=== PATIENT | male | born 1935 | race Caucasian/White ===

== ENCOUNTER 2020-04-26 22:24 | Emergency (ER) | payer OTHER ==
[~2020-04-26] VITALS: Ht 180.3 cm; Wt 74.8 kg
[2020-04-26 22:55] VITALS: BP_SYST 153
[2020-04-26 23:55] LABS: BASOPHILS # (AUTO) 0.1 K/uL (0.0-0.2); BASOPHILS % (AUTO) 0.9 % (0.0-2.0); EOSINOPHILS # (AUTO) 0.1 K/uL (0.0-0.4); EOSINOPHILS % (AUTO) 0.7 % (0.0-4.0); HEMATOCRIT 45.8 % (36-54); HEMOGLOBIN 15.3 g/dL (14.0-18.0); LYMPHOCYTES # (AUTO) 1.2 K/uL (1.0-5.5); LYMPHOCYTES % (AUTO) 16.8 % (20.5-51.5); MEAN CORPUSCULAR HEMOGLOBIN 31 pg (27-31); MEAN CORPUSCULAR HGB CONC 34 % (32-36); MEAN CORPUSCULAR VOLUME 93 fL (79.0-98.0); MONOCYTES # (AUTO) 0.6 K/uL (0.0-1.0); MONOCYTES % (AUTO) 8.8 % (1.7-9.3); NEUTROPHILS # (AUTO) 5.3 K/uL (1.8-7.7); NEUTROPHILS % (AUTO) 72.8 % (40.0-70.0); PLATELET COUNT (AUTO) 135 K/uL (130-430); RED BLOOD CELL COUNT(AUTO) 4.94 MIL/uL (4.2-6.2); RED CELL DISTRIBUTION WIDTH 14.5 % (9.0-15.0); WHITE BLOOD COUNT (AUTO) 7.3 K/uL (4.8-10.8)
--- NOTE | 2020-04-27 00:08 | NUR ---
Patient to ER bed H1 to gown for evaluation. Side rails up.
[2020-04-27 00:09] LABS: ANION GAP 10 (5-15); CALCIUM 9.3 mg/dL (8.4-11.0); CHLORIDE 105 mmol/L (98-107); GLUCOSE 163 mg/dL (70-99); POTASSIUM 4.2 mmol/L (3.5-5.1); SODIUM SERUM 139 mmol/L (136-145); UREA NITROGEN, BLOOD 38 mg/dL (8-21)
--- NOTE | 2020-04-27 00:10 | NUR ---
ER Dr. Jeffries at bedside examining patient.
[2020-04-27 00:14] LABS: ALANINE AMINOTRANSFERASE 42 U/L (12-78); ALBUMIN 3.8 g/dL (3.4-4.8); ASPARTATE AMINOTRANSFERASE 25 U/L (10-37); TOTAL BILIRUBIN 0.4 mg/dL (0.0-1.0)
[2020-04-27 00:16] LABS: ACETAMINOPHEN < 1 ug/mL (1-30); ALCOHOL, BLOOD < 3 mg/dL (<10)
--- NOTE | 2020-04-27 00:16 | NUR ---
Patient BIB from home. C/O medical clearance x today. Per EMT reported, family called 911 for family disturbance, [place] [employer] placed patient on .
--- NOTE | 2020-04-27 02:16 | NUR ---
Patient walked around and states " want to go home." Dr. Jeffries spoke with patient.
--- NOTE | 2020-04-27 04:21 | NUR ---
Patient resting quietly. No acute distress noted. Vital signs within normal range.
--- NOTE | 2020-04-27 07:15 | NUR ---
PLACEMENT NOTES FAXING FACESHEET AND CLINICALS TO POSSIBLE ACCEPTING BRETT-PSYCH FACILITIES: [facility]
--- NOTE | 2020-04-27 07:18 | NUR ---
Patient sitting upright in bed, patient appears restless and having mild agitation. Patient is consolable. Patient report was not received from warehouse worker 2nd shift nurse. Patient awaiting placement on 5150. heavy line technician is actively trying to find placement.
--- NOTE | 2020-04-27 07:52 | NUR ---
Spoke with Dr. Reyes regarding patient agitation, and elevated blood pressure. Orders received.
[2020-04-27] MEDS ORDERED: LORazepam 1 MG TABLET PO ONE (08:00)
--- NOTE | 2020-04-27 09:15 | NUR ---
Patient sitting upright in bed, eating breakfast, all needs are met at this time. Patient is ambulatory to restroom. Will continue to follow up and monitor.
--- NOTE | 2020-04-27 10:46 | NUR ---
Patient speaking with Dr. Reynoso via Bill. Allyssa appears to have memory issues, and patient is having a difficult time recalling basic information. Patient states it is April 2014, and patient states he is 76 years old. He is able to recall phone number and address, as well as wifes name and age. Patient states no intent to harm self or others, no psychiatic hospitalization history or medication history. Patient denies suicidal and homicidal ideations. It is recommended that patient be hospitalized and the patient has deficits and disturbances.
--- NOTE | 2020-04-27 12:23 | NUR ---
Spoke with Sherlyn at [employer] will fax over required information of facesheet, hold, H&P, and labs. Will follow up regarding placement.
--- NOTE | 2020-04-27 14:44 | NUR ---
Patient resting comfortably in bed. Patient needs are met at this time. Patient is calm and cooperative. Aware we are waiting for placement.
--- NOTE | 2020-04-27 14:46 | NUR ---
Sherlyn, [employer] caseworker, said they would not be able to authorize this weekend.
--- NOTE | 2020-04-27 16:57 | NUR ---
Patient resting comfortably in bed. Patient needs are met at this time. Patient is calm and cooperative. Aware we are waiting for placement.
--- NOTE | 2020-04-27 18:01 | NUR ---
Patient given dinner tray and placed in upright position. Patient is calm and cooperative. Will continue to follow up and monitor.
--- NOTE | 2020-04-27 18:43 | NUR ---
Patient ambulatory to restroom. Patient is calm and cooperative. Will continue to follow up and monitor.
--- NOTE | 2020-04-27 20:00 | NUR ---
S/W Yoko (Representing Sammie) updated on lastest info
--- NOTE | 2020-04-27 21:20 | NUR ---
VSS no s/s of acute distress Resting on pending sale to [facility] up
--- NOTE | 2020-04-27 22:51 | NUR ---
S/W family member, updated on pt overall condition
--- NOTE | 2020-04-28 00:02 | NUR ---
Pt sharing stories and food with staff, being completely cooperative and pleasant
--- NOTE | 2020-04-28 02:30 | NUR ---
Pt remains in stable condition, able to use restroom, well tolerated
--- NOTE | 2020-04-28 04:30 | NUR ---
VSS no s/s of acute distress Resting on gurney rails up
--- NOTE | 2020-04-28 06:18 | NUR ---
S/W pt's Sammie (Ana) updated her on status and upcoming Psych re-eval
--- NOTE | 2020-04-28 07:15 | NUR ---
Patient report received from RICHMOND Starr. Patient appears sleeping, resting comfortably. Called for patient tray.
--- NOTE | 2020-04-28 09:01 | NUR ---
Patient is sitting upright at bedside for breakfast. Patient is calm, and cooperative. Intermittent confusion, asking to go to the mailbox. Patient reassured, no mail has came today. Will continue to follow up and monitor.
--- NOTE | 2020-04-28 11:40 | NUR ---
PATIENT RESTING COMFORTABLY, NEEDS ARE MET AT THIS TIME. WILL CONTINUE TO FOLLOW UP AND MONITOR.
--- NOTE | 2020-04-28 13:42 | NUR ---
PT WALKING CLOSE TO NURSE STATION,RESPIRATIONS EVEN AND UNLABORED
--- NOTE | 2020-04-28 14:18 | NUR ---
PATIENT IS ASKING QUESTIONS REGARDING PROGRESS OF CARE, SAT AT BEDSIDE DISCUSSING STATUS. PATIENT IS COOPERATIVE, AND REMAINING CALM. WILL CONTINUE TO FOLLOW UP AND MONITOR, TECH CONTINUES TOFIND PLACEMENT FOR THE PATIENT. WILL CONTINUE TO FOLLOW UP AND MONITOR.
--- NOTE | 2020-04-28 15:48 | NUR ---
PATIENT NEEDS ARE MET AT THIS TIME. PATIENT UPDATED ON STATUS OF PLACEMENT, PATIENT IS AGREEABLE, BUT IS UPSET REGARDING FAMILY UPSET AND HIS MISSING BELONGINGS. PATIENT IS ABLE TO BE CONSOLED . PATIENT IS COOPERATIVE WITH CARE. WILL CONTINUE TO FOLLOW UP AND MONITOR.
--- NOTE | 2020-04-28 17:47 | NUR ---
CALLED FOR PATIENT DINNER TRAY, GIVEN COFFEE REQUESTED. PATIENT IS CALM AND COOPERATIVE. WILL CONTINUE TO FOLLOW UP AND MONITOR.
--- NOTE | 2020-04-28 18:50 | NUR ---
PATIENT AWARE WE ARE WAITING ON PLACEMENT AND PENDING SHIFT CHANGE. PATIENT VERBALIZED UNDERSTANDING. PATIENT NEEDS ARE MET AT THIS TIME. PATIENT IS CALM .
--- NOTE | 2020-04-28 19:18 | NUR ---
PATIENT REPORT GIVEN TO RICHMOND SAWANT.
--- NOTE | 2020-04-28 19:19 | NUR ---
PT IS RESTING QUIETLY IN HALLWAY, AWAITING PSYCH PLACEMENT. PT IN NO DISTRESS.
[2020-04-28] MEDS ORDERED: HALOPERIDOL LACTATE 5 MG/ML VIAL IM ONE (22:00)
--- NOTE | 2020-04-28 22:00 | NUR ---
PT AGITATED AND PACING UNIT. PT MEDICATED FOR AGITATION-SEE MAR.
--- NOTE | 2020-04-28 22:20 | NUR ---
REPORT TO [facility]ASE WHO WILL ASSUME CARE.
--- NOTE | 2020-04-28 22:30 | NUR ---
PT IS RESTING COMFORTABLY IN BED, NO ACUTE DISTRESS NOTED AT THIS TIME. WILL CONTINUE TO MONITOR
--- NOTE | 2020-04-28 23:30 | NUR ---
Pt is resting in bed, chest rise and fall observed. Vital signs are stable, will continue to monitor.
--- NOTE | 2020-04-29 00:45 | NUR ---
Pt is resting in bed, chest rise and fall observed. Vital signs are stable, will continue to monitor.
--- NOTE | 2020-04-29 01:45 | NUR ---
Pt is awake and resting at this time. No acute distress noted at this time. Will continue to monitor
--- NOTE | 2020-04-29 02:45 | NUR ---
Pt is resting in bed, chest rise and fall observed. Vital signs are stable, will continue to monitor.
--- NOTE | 2020-04-29 04:33 | NUR ---
Pt is resting in bed, chest rise and fall observed. Vital signs are stable, will continue to monitor.
--- NOTE | 2020-04-29 05:30 | NUR ---
Pt is resting in bed, no acute distress noted at this time. Will continue to monitor.
--- NOTE | 2020-04-29 08:11 | NUR ---
Pt asleep in [facility] no distress, resting comfortably
--- NOTE | 2020-04-29 10:51 | NUR ---
Dr Martinez at bedside to assess pt
--- NOTE | 2020-04-29 11:03 | NUR ---
Dr Martinez assessed pt at bedside, plan for pt is to transfer to [facility].
--- NOTE | 2020-04-29 15:02 | NUR ---
report given to Airam dawn [place]. Pt to be sent at 1600
[2020-04-29 16:50] VITALS: BP_SYST 142
--- NOTE | 2020-04-29 16:51 | NUR ---
Patient to be transferred to [facility]. Is being transferred due to higher level of care. Receiving facility has accepting physician and available space. ER physician has signed transfer form. Patient or responsible alliance party has agreed to transfer and signed form. Patient belongings inventoried and will be sent with patient. Copy of nursing notes, lab reports, EKG, Physicians Orders and X-rays to be sent with patient. Report called to CARL at receiving facility. Receiving physician is DR EM. [facility] ambulance service has been called for transfer.
== END 2020-04-29 16:50 ==
LOC: SED 22:24
DX: F03.90 Unspecified dementia, unspecified severity, without behavioral disturbance, psychotic disturbance, mood disturbance, and anxiety (principal)
CPT/HCPCS: 36415; 70450; 80053; 82140; 85025; 87081; 99285; G0480; G0481; G0482; J1630; U0003

== ENCOUNTER 2021-07-03 16:54 | Inpatient (IN) | payer OTHER, SELFPAY ==
[~2021-07-03] VITALS: Ht 180.3 cm; Wt 88.6 kg
[2021-07-03 16:55] VITALS: BP_SYST 132
--- NOTE | 2021-07-03 16:55 | NUR ---
BROUGHT IN BY [place] OLAF FIRE AND PLACED IN BED #7, TRIAGED. REPORT GIVEN TO PELON
--- NOTE | 2021-07-03 17:00 | NUR ---
Pt bib ambulance with complaint of near syncopal event today while walking to his car with his . He was assisted to the ground no trauma noted pt denies loss of concioussness and states he feels fine. Pt was positive for orhtostatics per paramedics. Pt has IV 20Gauge to left forearm. Pt is AAOX3 at baseline and currently. Pt is in no acute distress at this time. VSS attached to monitor with side rails up.
--- NOTE | 2021-07-03 17:05 | NUR ---
SHANDA Kim at bedside examining patient.
[2021-07-03] MEDS ORDERED: NACL 0.9% 1,000 ML IV ONE (17:15)
--- NOTE | 2021-07-03 17:29 | NUR ---
X-ray at bedside.
--- NOTE | 2021-07-03 17:49 | NUR ---
Patient transported to radiology via wheelchair, accompanied by tech.
--- NOTE | 2021-07-03 18:00 | NUR ---
Pt back from CT reattached to monitor. at bedside.
[2021-07-03] MEDS ORDERED: MEMA1CAP3 PO (18:02)
[2021-07-03] MEDS ORDERED: QUET25TA36 PO (18:02)
[2021-07-03] MEDS ORDERED: LIP20 PO (18:02)
[2021-07-03] MEDS ORDERED: ESCI10TA PO (18:02)
--- NOTE | 2021-07-03 18:03 | NUR ---
Medication reconciliation completed with information provided by pt brought home medications. Any prior medication reconciliation on file was reviewed and corrected.
--- NOTE | 2021-07-03 20:05 | NUR ---
# 20 gauge angiocath placed to RFA. Use of asceptic technique. Opsite placed over site. Blood return noted. Blood for lab drawn from site. Flushed with 10 cc of normal saline. No evidence of infiltration noted. Patient tolerated well.
--- NOTE | 2021-07-03 20:05 | NUR ---
Blood collected and sent to lab.
--- NOTE | 2021-07-03 20:14 | NUR ---
Urine collected and sent to lab.
[2021-07-03 20:25] LABS: BASOPHILS % (AUTO) 0.6 % (0.0-2.0); EOSINOPHILS # (AUTO) 0.1 K/uL (0.0-0.4); EOSINOPHILS % (AUTO) 1.4 % (0.0-4.0); HEMATOCRIT 41.6 % (36-54); HEMOGLOBIN 14.2 g/dL (14.0-18.0); LYMPHOCYTES # (AUTO) 2.2 K/uL (1.0-5.5); LYMPHOCYTES % (AUTO) 31.6 % (20.5-51.5); MEAN CORPUSCULAR HEMOGLOBIN 32 pg (27-31); MEAN CORPUSCULAR HGB CONC 34 % (32-36); MEAN CORPUSCULAR VOLUME 93 fL (79.0-98.0); MONOCYTES # (AUTO) 0.7 K/uL (0.0-1.0); MONOCYTES % (AUTO) 9.3 % (1.7-9.3); NEUTROPHILS % (AUTO) 57.1 % (40.0-70.0); PLATELET COUNT (AUTO) 111 K/uL (130-430); RED CELL DISTRIBUTION WIDTH 13.5 % (9.0-15.0)
[2021-07-03 20:31] LABS: ANION GAP 10 (5-15); CALCIUM 8.6 mg/dL (8.4-11.0); CHLORIDE 108 mmol/L (98-107); CREATININE 2.17 mg/dL (0.55-1.30); GLUCOSE 84 mg/dL (70-99); POTASSIUM 3.9 mmol/L (3.5-5.1); SODIUM SERUM 141 mmol/L (136-145); UREA NITROGEN, BLOOD 33 mg/dL (8-21)
[2021-07-03 20:33] LABS: BILIRUBIN,URINE NEGATIVE (NEGATIVE); BLOOD, URINE NEGATIVE (NEGATIVE); CLARITY/URINE CLEAR (CLEAR); COLOR,URINE YELLOW (YELLOW); GLUCOSE,URINE NEGATIVE (NEGATIVE); KETONES,URINE NEGATIVE (NEGATIVE); LEUKOCYTE ESTERASE ,URINE NEGATIVE (NEGATIVE); NITRITE, URINE NEGATIVE (NEGATIVE); PH,URINE 5.5 (5.0-8.0); PROTEIN URINE NEGATIVE (NEGATIVE); UROBILINOGEN,URINE 0.2 (0.2-1.0)
[2021-07-03 20:37] LABS: ALANINE AMINOTRANSFERASE 49 U/L (12-78); ALBUMIN 3.3 g/dL (3.4-4.8); ASPARTATE AMINOTRANSFERASE 23 U/L (10-37); TOTAL BILIRUBIN 0.4 mg/dL (0.0-1.0)
[2021-07-03 20:38] LABS: ALCOHOL, BLOOD < 3 mg/dL (<10)
[2021-07-03 20:48] LABS: PROTHROMBIN TIME 10.7 SECS (9.5-12.5)
--- NOTE | 2021-07-03 20:54 | NUR ---
Covid swab collected and sent to lab.
[2021-07-03 21:09] LABS: BARBITURATE, URINE NEGATIVE (NEG <=200); BENZODIAZEPINE, URINE NEGATIVE (NEG <=150); CANNABINOID, URINE NEGATIVE (NEG <=50); COCAINE, URINE NEGATIVE (NEG <=150); METHAMPHETAMINES SCREEN,URINE NEGATIVE (NEG <=500); OPIATE, URINE NEGATIVE (NEG <=100); PHENCYCLIDINE SCREEN,URINE NEGATIVE (NEG <=25); UR TRICYCLIC ANTIDEPRESSANTS POSITIVE (NEG <=300); URINE AMPHETAMINE NEGATIVE (NEG <=500); URINE METHADONE NEGATIVE (NEG <=200); URINE OXYCODONE SCREEN NEGATIVE (NEG <=100); URINE PROPOXYPHENE SCREEN NEGATIVE (NEG <=300)
--- NOTE | 2021-07-03 21:27 | NUR ---
Dr. Wiggins at bedside speaking with pt.
--- NOTE | 2021-07-03 21:40 | NUR ---
Admit orders recieved.
--- NOTE | 2021-07-03 21:42 | NUR ---
Called for a bed and spoke with charge nurse. Awaiting bed placement.
[2021-07-03] MEDS ORDERED: ACETAMINOPHEN 325 MG TABLET PO PRN (22:00)
[2021-07-03] MEDS ORDERED: DOCUSATE SODIUM 100 MG CAPSULE PO PRN (22:00)
[2021-07-03] MEDS ORDERED: ONDANSETRON HCL 4 MG/2 ML VIAL IVP PRN (22:00)
[2021-07-03] MEDS ORDERED: MORPHINE 2 MG/ML INJ. SYRINGE IVP PRN ×2 (22:00)
[2021-07-03] MEDS ORDERED: MUPIROCIN 2% TOPICAL OINTMENT 22 GM NS PRN (22:00)
[2021-07-03] MEDS ORDERED: POTASSIUM CHLORIDE 20 MEQ TAB.PRT.SR PO PRN (22:00)
[2021-07-03] MEDS ORDERED: MAGNESIUM SULFATE 50 ML IV PRN (22:00)
--- NOTE | 2021-07-03 22:41 | NUR ---
Patient will be admitted to care of . Admitted to Telemetry unit. Will go to room 102A. Belongings list completed. Complete and up to date summary report printed. SBAR report to be given at bedside with opportunity for questions.
--- NOTE | 2021-07-03 22:42 | NUR ---
POLST updated to full code.
--- NOTE | 2021-07-03 22:45 | NUR ---
Transfered to telemetery 102A on [facility] attached to portable monitor accompanied by staff.
--- NOTE | 2021-07-03 23:04 | NUR ---
ADMIT NOTE Received pt from ER with a diagnosis of syncope. Admission process initiated. patient oriented to pain management, safety and call light-teach back done.
--- NOTE | 2021-07-03 23:45 | NUR ---
pulled out IV Very forgetful; pulled out IV
[2021-07-03] MEDS: NACL 0.9% 1,000 ML IV SCH (23:50)
[2021-07-04] VITALS (7 sets, daily range): BP systolic 11–167
--- NOTE | 2021-07-04 00:55 | NUR ---
Dr. Cohen Informed Dr. Cohen patient's latest B/P 167/96, HR 67. Received medication orders; TORB; Amlodipine 10mg daily, one now and Clonidine 0.2mg PO once now.
[2021-07-04] MEDS ORDERED: cloNIDine HCL 0.2 MG TABLET PO ONE (01:00)
[2021-07-04] MEDS ORDERED: amLODIPine BESYLATE 10 MG TABLET PO ONE (01:00)
--- NOTE | 2021-07-04 01:20 | NUR ---
Pulled out IV, removed leads confused, forgetful, not cooperating.
--- NOTE | 2021-07-04 02:15 | NUR ---
New room, IV start patient was transferred to room 113B, close to nursing station. New IV was started on LFA #20G, blood return noted, tolerated, Resumed IVF, infusing well.
[2021-07-04] MEDS: LORazepam 2 MG/ML VIAL IVP PRN (03:33)
--- NOTE | 2021-07-04 03:33 | NUR ---
Ativan Forgetful; keeps asking when will he go home? why is he here? why does he need telemonitor? keeps removing telemetry leads, and attempts to remove dressing securing IV. I (nurse) need to chart by the door to keep an eye on him. He is awake, restless and removing items. Administered Ativan as ordered, wctm
--- NOTE | 2021-07-04 05:29 | NUR ---
CONSULT REASON FOR CONSULT: SYNCOPE CONSULTING PHYSICIAN: DR. WU INFORMATION TECHNOLOGY COORDINATOR PHONE NUMBER: [phone] ORDERING PHYSICIAN: DR. GANN
--- NOTE | 2021-07-04 05:30 | NUR ---
CONSULT REASON FOR CONSULT: RENAL INSUFF PERSON I SPOKE WITH: JOAO CONSULTING PHYSICIAN: DR. WIGGINS WELDING INSTRUCTOR PHONE NUMBER: [phone] ORDERING PHYSICIAN: DR. GANN
[2021-07-04 07:34] LABS: BASOPHILS % (AUTO) 0.6 % (0.0-2.0); EOSINOPHILS # (AUTO) 0.1 K/uL (0.0-0.4); EOSINOPHILS % (AUTO) 2.2 % (0.0-4.0); HEMATOCRIT 36.4 % (36-54); HEMOGLOBIN 12.8 g/dL (14.0-18.0); LYMPHOCYTES # (AUTO) 1.7 K/uL (1.0-5.5); LYMPHOCYTES % (AUTO) 27.5 % (20.5-51.5); MEAN CORPUSCULAR HEMOGLOBIN 32 pg (27-31); MEAN CORPUSCULAR HGB CONC 35 % (32-36); MEAN CORPUSCULAR VOLUME 91 fL (79.0-98.0); MONOCYTES # (AUTO) 0.6 K/uL (0.0-1.0); MONOCYTES % (AUTO) 8.9 % (1.7-9.3); NEUTROPHILS # (AUTO) 3.8 K/uL (1.8-7.7); NEUTROPHILS % (AUTO) 60.8 % (40.0-70.0); PLATELET COUNT (AUTO) 96 K/uL (130-430); RED BLOOD CELL COUNT(AUTO) 3.99 MIL/uL (4.2-6.2); RED CELL DISTRIBUTION WIDTH 13.4 % (9.0-15.0); WHITE BLOOD COUNT (AUTO) 6.3 K/uL (4.8-10.8)
[2021-07-04 08:11] LABS: ANION GAP 8 (5-15); CALCIUM 8.5 mg/dL (8.4-11.0); CHLORIDE 108 mmol/L (98-107); CREATININE 1.98 mg/dL (0.55-1.30); GLUCOSE 122 mg/dL (70-99); POTASSIUM 3.9 mmol/L (3.5-5.1); SODIUM SERUM 138 mmol/L (136-145); UREA NITROGEN, BLOOD 30 mg/dL (8-21)
--- NOTE | 2021-07-04 08:20 | NUR ---
Opening note Patient is resting in bed A&O x3, able to reorient, is forgetful. No complaint of pain or discomfort, no signs or symptoms of respiratory distress, IV is infusing no signs or symptoms of infiltration. Educated patient on plan of care, patient verbalized understanding will reenforce education. Bed is in lowest position, call light within reach, fall and aspiration precautions are in place. Will continue to monitor.
[2021-07-04] MEDS ORDERED: [UNRECOGNIZED DRUG - OTHER] PO SCH (09:00)
[2021-07-04] MEDS ORDERED: MEMANTINE HCL PO SCH (09:00)
[2021-07-04] MEDS ORDERED: ESCITALOPRAM OXALATE 10 MG TABLET PO SCH (09:00)
[2021-07-04] MEDS ORDERED: DONEPEZIL HCL PO SCH (09:00)
--- NOTE | 2021-07-04 09:28 | NUR ---
CONSULTATION PAGED REASON FOR CONSULTATION:SYNCOPE WAS CONSULT CALED?Y PERSON WHO WAS NOTIFIED:ADAMA CONSULTING PHYSICIAN:JAVI QUINONEZ BAKER CHEF SPECIALTY:CARDIO BAKER CHEF PHONE NUMBER:[phone] RE[facility]ING PH[facility]IC[facility]
--- NOTE | 2021-07-04 09:38 | NUR ---
CONSULTATION PAGED REASON FOR CONSULTATION:SYNCOPE WAS CONSULT CALED?Y PERSON WHO WAS NOTIFIED: CONSULTING PHYSICIAN:ROZINA SCOTT MD OPHTHALMOLOGIST SPECIALTY:CARDIO MD OPHTHALMOLOGIST PHONE [phone]: REQUESTING PHYSICIAN:DR.SINGHGABE
[2021-07-04] MEDS: CITALOPRAM HYDROBROMIDE 20 MG TABLET PO SCH (09:44)
[2021-07-04] MEDS: amLODIPine BESYLATE 10 MG TABLET PO SCH (09:44)
[2021-07-04] MEDS: ATORVASTATIN 20 MG TABLET PO SCH (09:44)
[2021-07-04] MEDS: HEPARIN SODIUM,PORCINE 5,000 UNITS/ML VIAL SUBCUT SCH ×2 (09:47→20:06)
--- NOTE | 2021-07-04 10:01 | NUR ---
CONSULTATION CANCELED INFORMED ELVIS QUINONEZ THAT THE CONSULT WAS CANCELED WITH HIM.
[2021-07-04] MEDS: NACL 0.9% 1,000 ML IV SCH ×2 (12:18→17:25)
--- NOTE | 2021-07-04 12:30 | NUR ---
Rn note Patient is stable resting in bed. is at bedside. No complaint of pain or discomfort. Will continue to monitor.
--- NOTE | 2021-07-04 18:38 | NUR ---
Closing note Patient is resting in bed A&O x3, able to reorient, is forgetful. No complaint of pain or discomfort, no signs or symptoms of respiratory distress, IV is infusing no signs or symptoms of infiltration. all needs were met. Bed is in lowest position, call light within reach, fall and aspiration precautions are in place. Will endorse report to night cleaner.
--- NOTE | 2021-07-04 19:30 | NUR ---
INITIAL NOTE AT INITIAL ASSESSMENT, PATIENT IS RESTING IN BED, STABLE, NO SIGNS OF RESPIRATORY DISTRESS. PATIENT VERBALIZES NO PAIN, AND NO DIZZINESS. PLAN OF CARE FOR THE EVENING IS COMMUNICATED WITH THE PATIENT, HE IS STILL CONFUSED. PATIENT IS UNABLE TO DEMONSTRATE CORRECT USAGE OF CALL LIGHT AT THIS TIME DUE TO COGNITIVE IMPAIRMENT; FREQUENT ROUNDING WILL BE COMPLETED THROUGHOUT THE NIGHT TO MEET ALL PATIENT NEEDS. BED IS LOCKED, ALARMED, AND AT THE LOWEST LEVEL. FALL SAFETY EDUCATION PROVIDED. FALL, AND SAFETY PRECAUTIONS WILL BE TAKEN THROUGHOUT THE SHIFT.
--- NOTE | 2021-07-04 20:45 | NUR ---
MED PASS NOTE SCHEDULED MEDICATIONS GIVEN AT THIS TIME, PATIENT TOLERATED WELL. CALL LIGHT IS PLACED WITHIN REACH. BED IS LOCKED, ALARMED, AND AT THE LOWEST LEVEL.
[2021-07-05 00:34] VITALS: BP_SYST 109
[2021-07-05] MEDS: LORazepam 2 MG/ML VIAL IVP PRN (01:01)
--- NOTE | 2021-07-05 01:10 | NUR ---
ANXIETY NOTE PATIENT ANXIOUS AND RESTLESS, REORIENTATION EFFORTS NO EFFECTIVE THIS TIME. PRN MEDICATION WILL BE GIVEN AT THIS TIME FOR PATIENT'S ANXIETY. WILL REASSESS IF PRN MEDICATION GIVEN WAS EFFECTIVE. CALL LIGHT PLACED WITHIN REACH. BED IS LOCKED, ALARMED, AND AT THE LOWEST LEVEL.
[2021-07-05 06:48] LABS: BASOPHILS # (AUTO) 0.1 K/uL (0.0-0.2); BASOPHILS % (AUTO) 0.9 % (0.0-2.0); EOSINOPHILS # (AUTO) 0.2 K/uL (0.0-0.4); EOSINOPHILS % (AUTO) 4.4 % (0.0-4.0); HEMATOCRIT 36.2 % (36-54); HEMOGLOBIN 12.5 g/dL (14.0-18.0); LYMPHOCYTES # (AUTO) 1.5 K/uL (1.0-5.5); LYMPHOCYTES % (AUTO) 27.4 % (20.5-51.5); MEAN CORPUSCULAR HEMOGLOBIN 31 pg (27-31); MEAN CORPUSCULAR HGB CONC 35 % (32-36); MEAN CORPUSCULAR VOLUME 91 fL (79.0-98.0); MONOCYTES # (AUTO) 0.5 K/uL (0.0-1.0); MONOCYTES % (AUTO) 8.4 % (1.7-9.3); NEUTROPHILS # (AUTO) 3.3 K/uL (1.8-7.7); NEUTROPHILS % (AUTO) 58.9 % (40.0-70.0); PLATELET COUNT (AUTO) 94 K/uL (130-430); RED BLOOD CELL COUNT(AUTO) 3.97 MIL/uL (4.2-6.2); RED CELL DISTRIBUTION WIDTH 13.4 % (9.0-15.0); WHITE BLOOD COUNT (AUTO) 5.5 K/uL (4.8-10.8)
--- NOTE | 2021-07-05 06:48 | NUR ---
CLOSING NOTE PATIENT WAS CONFUSED/ FORGETFUL THROUGHOUT THE SHIFT, REORIENTATION EFFORTS WERE ONLY EFFECTIVE FOR A FEW MINUTES BEFORE PATIENT FORGOT AGAIN. HE STATED HE DID NOT FEEL ANY DIZZINESS DURING THE SHIFT. NO SHORTNESS OF BREATH NOTED. AT THIS TIME, PATIENT IS RESTING IN BED, STABLE, NO SIGNS OF RESPIRATORY DISTRESS. CALL LIGHT IS WITHIN REACH. BED IS LOCKED, ALARMED, AND AT THE LOWEST LEVEL. FALL, SAFETY, AND RESPIRATORY PRECAUTIONS HAVE BEEN TAKEN THROUGHOUT THE SHIFT. WILL CONTINUE TO MONITOR UNTIL SHIFT REPORT IS GIVEN AT BEDSIDE TO AM NURSE.
--- NOTE | 2021-07-05 07:10 | NUR ---
To VANDANA BENDER Addendum: 07/05/21 at 0716 by Aster Chou RN Wrong charting not intended for this patient
[2021-07-05 07:13] VITALS: BP_SYST 126
--- NOTE | 2021-07-05 07:15 | NUR ---
Patient awake/alert oriented to himself , slow response to question and forgetful, safety /fall precaution initiated
[2021-07-05 07:16] LABS: ANION GAP 7 (5-15); CALCIUM 8.3 mg/dL (8.4-11.0); CHLORIDE 108 mmol/L (98-107); CREATININE 1.78 mg/dL (0.55-1.30); GLUCOSE 110 mg/dL (70-99); POTASSIUM 3.9 mmol/L (3.5-5.1); SODIUM SERUM 138 mmol/L (136-145); UREA NITROGEN, BLOOD 29 mg/dL (8-21)
[2021-07-05] MEDS: CITALOPRAM HYDROBROMIDE 20 MG TABLET PO SCH (08:03)
[2021-07-05] MEDS: amLODIPine BESYLATE 10 MG TABLET PO SCH (08:04)
[2021-07-05] MEDS: ATORVASTATIN 20 MG TABLET PO SCH (08:04)
--- NOTE | 2021-07-05 08:45 | NUR ---
Able to ambulate up to door steady gait , fall risk no dizziness
[2021-07-05] MEDS: HEPARIN SODIUM,PORCINE 5,000 UNITS/ML VIAL SUBCUT SCH (09:29)
--- NOTE | 2021-07-05 09:30 | NUR ---
Clarified with Dr. Collins regarding heparin and platelets counts and said its OK to give.
[2021-07-05] MEDS ORDERED: MEMANTINE HCL 5 MG TABLET PO ONE (09:45)
--- NOTE | 2021-07-05 10:00 | NUR ---
Patient ambulate to bathroom with steady gait no dizziness.
--- NOTE | 2021-07-05 10:23 | NUR ---
Nutrition Update Andrey Scale 18 noted. Pt admitted for syncope. Diet: regular BMI: 27.2 kg/m2 RD to follow per nutrition care standards.
[2021-07-05] MEDS ORDERED: FAMOTIDINE 20 MG TABLET PO ONE (10:30)
[2021-07-05 11:28] VITALS: BP_SYST 148
--- NOTE | 2021-07-05 12:05 | NUR ---
Patient refusing to have IV fluids , as the bedside , patient saying i am drinking water.
[2021-07-05] MEDS ORDERED: QUEtiapine FUMARATE 25 MG TABLET PO ONE (12:15)
--- NOTE | 2021-07-05 12:32 | NUR ---
MADE A FOLLOW UP CALL TO THE NEURO CONSULT Earline LOMELI INHALATION THERAPIST FOR DR Franko WU, RE: SYNCOPE. LEFT A VOICE MESSAGE ON HIS CELL PHONE
--- NOTE | 2021-07-05 13:34 | NUR ---
Seen and examined by Dr. Zamudio , spoke to with clearance for discharge .
--- NOTE | 2021-07-05 13:45 | NUR ---
D/C Patient Patient given medication reconciliation form and D/C instructions. Exit Care provided. Patient verbalized understanding. MD discussed with patient the results and treatment provided. Ambulatory with steady gait for discharge to home. Patient in stable condition, ID band removed. IV catheter removed, intact and dressing applied, no active bleeding Patient educated on safety /fall management. All belongings sent with patient.
[2021-07-05 14:22] VITALS: BP_SYST 137
[2021-07-05 15:35] VITALS: BP_SYST 137
[2021-07-05] MEDS ORDERED: QUET25TA36 PO (16:57)
[2021-07-05] MEDS ORDERED: MEMANTINE HCL 5 MG TABLET PO SCH (21:00)
[2021-07-05] MEDS ORDERED: DONEPEZIL HCL 5 MG TABLET (ARICEPT) PO SCH (21:00)
[2021-07-06] MEDS ORDERED: FAMOTIDINE 20 MG TABLET PO SCH (09:00)
[2021-07-06] MEDS ORDERED: QUEtiapine FUMARATE 25 MG TABLET PO SCH (09:00)
== END 2021-07-05 15:10 | disposition home or self-care (01) | DRG 73 ==
LOC: SED 16:54 → STU 21:38
PROVIDERS: ADMIT General Practice; ATTEND General Practice
DX: G90.8 Other disorders of autonomic nervous system (principal); N17.0 Acute kidney failure with tubular necrosis; F29 Unspecified psychosis not due to a substance or known physiological condition; G30.9 Alzheimer's disease, unspecified; I10 Essential (primary) hypertension; F02.80 Dementia in other diseases classified elsewhere, unspecified severity, without behavioral disturbance, psychotic disturbance, mood disturbance, and anxiety; F32.9 Major depressive disorder, single episode, unspecified; I65.29 Occlusion and stenosis of unspecified carotid artery; N28.1 Cyst of kidney, acquired; Z20.822 Contact with and (suspected) exposure to COVID-19; Z66 Do not resuscitate; Z87.891 Personal history of nicotine dependence
CPT/HCPCS: 36415; 70450-TC; 71045; 76376; 76770; 80048; 80053; 80307; 81003; 83036; 83605; 83735; 84443; 84484; 85025; 85610-TC; 85730-TC; 87040-TC; 93005; 93306; 93880; 96360; 97530-GP; 99285; G0378; G0482; J1644; J2060; J2270

== ENCOUNTER 2021-07-05 20:40 | Inpatient (IN) | payer OTHER, SELFPAY ==
[~2021-07-05] VITALS: Ht 180.3 cm; Wt 88.5 kg
[~2021-07-05 20:40] MED LIST: ESCI10TA PO; LIP20 PO; MEMA1CAP3 PO; QUET25TA36 PO
[2021-07-05 20:44] VITALS: BP_SYST 98
[2021-07-05 21:15] LABS: BASOPHILS % (AUTO) 0.4 % (0.0-2.0); EOSINOPHILS # (AUTO) 0.1 K/uL (0.0-0.4); EOSINOPHILS % (AUTO) 0.8 % (0.0-4.0); HEMATOCRIT 38.1 % (36-54); HEMOGLOBIN 13.2 g/dL (14.0-18.0); LYMPHOCYTES # (AUTO) 0.6 K/uL (1.0-5.5); LYMPHOCYTES % (AUTO) 7.6 % (20.5-51.5); MEAN CORPUSCULAR HEMOGLOBIN 32 pg (27-31); MEAN CORPUSCULAR HGB CONC 35 % (32-36); MEAN CORPUSCULAR VOLUME 92 fL (79.0-98.0); MONOCYTES # (AUTO) 0.5 K/uL (0.0-1.0); MONOCYTES % (AUTO) 6.9 % (1.7-9.3); NEUTROPHILS # (AUTO) 6.3 K/uL (1.8-7.7); NEUTROPHILS % (AUTO) 84.3 % (40.0-70.0); PLATELET COUNT (AUTO) 97 K/uL (130-430); RED BLOOD CELL COUNT(AUTO) 4.16 MIL/uL (4.2-6.2); RED CELL DISTRIBUTION WIDTH 13.8 % (9.0-15.0); WHITE BLOOD COUNT (AUTO) 7.4 K/uL (4.8-10.8)
[2021-07-05 21:31] LABS: ANION GAP 10 (5-15); CALCIUM 8.7 mg/dL (8.4-11.0); CHLORIDE 108 mmol/L (98-107); CREATININE 2.32 mg/dL (0.55-1.30); GLUCOSE 141 mg/dL (70-99); POTASSIUM 4.1 mmol/L (3.5-5.1); SODIUM SERUM 139 mmol/L (136-145); UREA NITROGEN, BLOOD 29 mg/dL (8-21)
[2021-07-05 21:37] LABS: ALANINE AMINOTRANSFERASE 35 U/L (12-78); ALBUMIN 3.2 g/dL (3.4-4.8); ASPARTATE AMINOTRANSFERASE 22 U/L (10-37); TOTAL BILIRUBIN 0.5 mg/dL (0.0-1.0)
[2021-07-05] MEDS ORDERED: ONDANSETRON HCL 4 MG/2 ML VIAL IVP PRN (23:00)
[2021-07-05] MEDS ORDERED: QUEtiapine FUMARATE 25 MG TABLET PO ONE (23:00)
[2021-07-05] MEDS ORDERED: QUEtiapine FUMARATE 25 MG TABLET ONE (23:24)
[2021-07-05] MEDS: NACL 0.9% 1,000 ML IV SCH (23:54)
[2021-07-06] MEDS ORDERED: HALOPERIDOL LACTATE 5 MG/ML VIAL IM ONE
[2021-07-06] MEDS ORDERED: HALOPERIDOL 5 MG TABLET (HALDOL) PO ONE (01:15)
[2021-07-06] MEDS ORDERED: DIPHENHYDRAMINE INJ 50 MG/ML VIAL IVP ONE ×2 (01:15)
[2021-07-06 01:32] LABS: ANION GAP 11 (5-15); CALCIUM 8.6 mg/dL (8.4-11.0); CHLORIDE 107 mmol/L (98-107); CREATININE 2.33 mg/dL (0.55-1.30); GLUCOSE 131 mg/dL (70-99); POTASSIUM 3.7 mmol/L (3.5-5.1); SODIUM SERUM 141 mmol/L (136-145); UREA NITROGEN, BLOOD 28 mg/dL (8-21)
[2021-07-06 02:40] LABS: BILIRUBIN,URINE NEGATIVE (NEGATIVE); BLOOD, URINE NEGATIVE (NEGATIVE); CLARITY/URINE CLEAR (CLEAR); COLOR,URINE YELLOW (YELLOW); GLUCOSE,URINE NEGATIVE (NEGATIVE); KETONES,URINE NEGATIVE (NEGATIVE); LEUKOCYTE ESTERASE ,URINE NEGATIVE (NEGATIVE); NITRITE, URINE NEGATIVE (NEGATIVE); PROTEIN URINE NEGATIVE (NEGATIVE); UROBILINOGEN,URINE 0.2 (0.2-1.0)
[2021-07-06] MEDS ORDERED: HALOPERIDOL 5 MG TABLET (HALDOL) PO SCH (02:45)
[2021-07-06] MEDS ORDERED: KETAMINE 30 MG/3 ML SYRINGE IM ONE (08:00)
[2021-07-06] MEDS ORDERED: MEMANTINE HCL 7 MG CAP.SPR.24 PO SCH (09:00)
[2021-07-06] MEDS ORDERED: ESCITALOPRAM OXALATE 10 MG TABLET PO SCH (09:00)
[2021-07-06 09:14] LABS: BASOPHILS % (AUTO) 0.7 % (0.0-2.0); EOSINOPHILS # (AUTO) 0.2 K/uL (0.0-0.4); EOSINOPHILS % (AUTO) 2.7 % (0.0-4.0); HEMATOCRIT 37.4 % (36-54); HEMOGLOBIN 12.8 g/dL (14.0-18.0); LYMPHOCYTES # (AUTO) 1.1 K/uL (1.0-5.5); LYMPHOCYTES % (AUTO) 17.5 % (20.5-51.5); MEAN CORPUSCULAR HEMOGLOBIN 32 pg (27-31); MEAN CORPUSCULAR HGB CONC 34 % (32-36); MEAN CORPUSCULAR VOLUME 92 fL (79.0-98.0); MONOCYTES # (AUTO) 0.7 K/uL (0.0-1.0); NEUTROPHILS # (AUTO) 4.3 K/uL (1.8-7.7); NEUTROPHILS % (AUTO) 68.1 % (40.0-70.0); PLATELET COUNT (AUTO) 98 K/uL (130-430); RED BLOOD CELL COUNT(AUTO) 4.06 MIL/uL (4.2-6.2); RED CELL DISTRIBUTION WIDTH 13.7 % (9.0-15.0); WHITE BLOOD COUNT (AUTO) 6.3 K/uL (4.8-10.8)
[2021-07-06] MEDS: MEMANTINE HCL 5 MG TABLET PO SCH ×2 (09:44→21:09)
[2021-07-06] MEDS: ENOXAPARIN SODIUM 30 MG/0.3 ML SYRINGE SUBCUT SCH (09:45)
[2021-07-06] MEDS ORDERED: KETAMINE 30 MG/3 ML SYRINGE IVP ONE (10:00)
[2021-07-06] MEDS ORDERED: KETAMINE 30 MG/3 ML SYRINGE ONE (10:08)
[2021-07-06] MEDS: CITALOPRAM HYDROBROMIDE 20 MG TABLET PO SCH (10:08)
[2021-07-06] MEDS: ATORVASTATIN 20 MG TABLET PO SCH (10:08)
[2021-07-06] MEDS: QUEtiapine FUMARATE 25 MG TABLET PO SCH (10:09)
[2021-07-06 12:00] VITALS: BP_SYST 156
[2021-07-06 15:29] VITALS: BP_SYST 172
[2021-07-06] MEDS: NACL 0.9% 1,000 ML IV SCH (16:24)
[2021-07-06] MEDS: DONEPEZIL HCL 5 MG TABLET (ARICEPT) PO SCH (21:09)
[2021-07-06 21:14] VITALS: BP_SYST 177
[2021-07-07 00:27] VITALS: BP_SYST 153
[2021-07-07 07:09] LABS: BASOPHILS % (AUTO) 0.8 % (0.0-2.0); EOSINOPHILS # (AUTO) 0.3 K/uL (0.0-0.4); EOSINOPHILS % (AUTO) 4.3 % (0.0-4.0); HEMATOCRIT 39.6 % (36-54); HEMOGLOBIN 13.7 g/dL (14.0-18.0); LYMPHOCYTES # (AUTO) 1.2 K/uL (1.0-5.5); LYMPHOCYTES % (AUTO) 20.9 % (20.5-51.5); MEAN CORPUSCULAR HEMOGLOBIN 32 pg (27-31); MEAN CORPUSCULAR HGB CONC 35 % (32-36); MEAN CORPUSCULAR VOLUME 92 fL (79.0-98.0); MONOCYTES # (AUTO) 0.6 K/uL (0.0-1.0); MONOCYTES % (AUTO) 9.9 % (1.7-9.3); NEUTROPHILS # (AUTO) 3.8 K/uL (1.8-7.7); NEUTROPHILS % (AUTO) 64.1 % (40.0-70.0); PLATELET COUNT (AUTO) 103 K/uL (130-430); RED BLOOD CELL COUNT(AUTO) 4.33 MIL/uL (4.2-6.2); RED CELL DISTRIBUTION WIDTH 13.8 % (9.0-15.0); WHITE BLOOD COUNT (AUTO) 5.9 K/uL (4.8-10.8)
[2021-07-07 07:49] LABS: ANION GAP 11 (5-15); CALCIUM 8.8 mg/dL (8.4-11.0); CHLORIDE 109 mmol/L (98-107); CREATININE 1.81 mg/dL (0.55-1.30); GLUCOSE 98 mg/dL (70-99); SODIUM SERUM 144 mmol/L (136-145); UREA NITROGEN, BLOOD 21 mg/dL (8-21)
[2021-07-07 08:30] VITALS: BP_SYST 140
[2021-07-07] MEDS: MEMANTINE HCL 5 MG TABLET PO SCH ×2 (11:03→20:24)
[2021-07-07] MEDS: CITALOPRAM HYDROBROMIDE 20 MG TABLET PO SCH (11:03)
[2021-07-07] MEDS: ATORVASTATIN 20 MG TABLET PO SCH (11:04)
[2021-07-07] MEDS: QUEtiapine FUMARATE 25 MG TABLET PO SCH (11:04)
[2021-07-07] MEDS: ENOXAPARIN SODIUM 30 MG/0.3 ML SYRINGE SUBCUT SCH (11:05)
[2021-07-07] MEDS: NACL 0.9% 1,000 ML IV SCH (11:06)
[2021-07-07 11:36] VITALS: BP_SYST 152
[2021-07-07 15:42] VITALS: BP_SYST 147
[2021-07-07 20:22] VITALS: BP_SYST 145
[2021-07-07] MEDS: DONEPEZIL HCL 5 MG TABLET (ARICEPT) PO SCH (20:24)
[2021-07-07] MEDS ORDERED: QUEtiapine FUMARATE 25 MG TABLET PO SCH (21:00)
[2021-07-08] MEDS: NACL 0.9% 1,000 ML IV SCH (00:26)
[2021-07-08 00:35] VITALS: BP_SYST 102
[2021-07-08 05:35] VITALS: BP_SYST 148
[2021-07-08 07:14] LABS: BASOPHILS % (AUTO) 0.6 % (0.0-2.0); EOSINOPHILS # (AUTO) 0.2 K/uL (0.0-0.4); EOSINOPHILS % (AUTO) 4.3 % (0.0-4.0); HEMATOCRIT 38.2 % (36-54); HEMOGLOBIN 13.1 g/dL (14.0-18.0); LYMPHOCYTES # (AUTO) 1.5 K/uL (1.0-5.5); LYMPHOCYTES % (AUTO) 26.9 % (20.5-51.5); MEAN CORPUSCULAR HEMOGLOBIN 32 pg (27-31); MEAN CORPUSCULAR HGB CONC 34 % (32-36); MEAN CORPUSCULAR VOLUME 92 fL (79.0-98.0); MONOCYTES # (AUTO) 0.7 K/uL (0.0-1.0); MONOCYTES % (AUTO) 12.2 % (1.7-9.3); NEUTROPHILS # (AUTO) 3.2 K/uL (1.8-7.7); PLATELET COUNT (AUTO) 107 K/uL (130-430); RED BLOOD CELL COUNT(AUTO) 4.16 MIL/uL (4.2-6.2); RED CELL DISTRIBUTION WIDTH 13.7 % (9.0-15.0); WHITE BLOOD COUNT (AUTO) 5.6 K/uL (4.8-10.8)
[2021-07-08 07:21] LABS: ANION GAP 6 (5-15); CALCIUM 8.7 mg/dL (8.4-11.0); CHLORIDE 109 mmol/L (98-107); CREATININE 1.91 mg/dL (0.55-1.30); GLUCOSE 109 mg/dL (70-99); POTASSIUM 3.5 mmol/L (3.5-5.1); SODIUM SERUM 142 mmol/L (136-145); UREA NITROGEN, BLOOD 24 mg/dL (8-21)
[2021-07-08] MEDS: MEMANTINE HCL 5 MG TABLET PO SCH (08:01)
[2021-07-08] MEDS: ATORVASTATIN 20 MG TABLET PO SCH (08:01)
[2021-07-08] MEDS: CITALOPRAM HYDROBROMIDE 20 MG TABLET PO SCH (08:01)
[2021-07-08 08:02] VITALS: BP_SYST 160
[2021-07-08] MEDS: ENOXAPARIN SODIUM 30 MG/0.3 ML SYRINGE SUBCUT SCH (08:02)
[2021-07-08] MEDS ORDERED: SER25 PO (08:13)
[2021-07-08] MEDS ORDERED: METO25TA3 PO (08:17)
[2021-07-08] MEDS ORDERED: METOPROLOL TARTRATE 25 MG TABLET PO SCH (09:00)
[2021-07-08 10:55] VITALS: BP_SYST 111
[2021-07-08 12:34] VITALS: BP_SYST 111
== END 2021-07-08 14:00 | disposition home health service (06) | DRG 56 ==
LOC: SED 20:40 → STU 22:46 → SMU 07-06 10:37
PROVIDERS: ADMIT Hospitalist; ATTEND Hospitalist
DX: G30.9 Alzheimer's disease, unspecified (principal); N17.0 Acute kidney failure with tubular necrosis; E44.1 Mild protein-calorie malnutrition; F02.80 Dementia in other diseases classified elsewhere, unspecified severity, without behavioral disturbance, psychotic disturbance, mood disturbance, and anxiety; I10 Essential (primary) hypertension; F29 Unspecified psychosis not due to a substance or known physiological condition; E78.5 Hyperlipidemia, unspecified; Z20.822 Contact with and (suspected) exposure to COVID-19; Z79.899 Other long term (current) drug therapy; Z68.27 Body mass index [BMI] 27.0-27.9, adult
CPT/HCPCS: 36415; 70450-TC; 76376; 76770; 80048; 80053; 81003; 83735; 85025; 87081; 93005; 96372; 96374; 96375; 97116-GP; 97530-GP; 99285; G0378; J1200; J1650